=== PATIENT | male | born 1985 | race Caucasian/White ===

== ENCOUNTER 2020-02-04 23:52 | Emergency (ER) | payer OTHER ==
--- NOTE | 2020-02-05 00:53 | XR ---
EXAMINATION TYPE: XR chest 2V DATE OF EXAM: 02/05/2020 COMPARISON: NONE HISTORY: Chest pain TECHNIQUE: FINDINGS: Heart and mediastinum are normal. Lungs are clear. Diaphragm is normal. Bony thorax appears normal. Pulmonary vascularity is normal. IMPRESSION: Normal chest.
[2020-02-05 00:58] LABS: Basophils % (A) 0 %; Eosinophils # (A) 0.2 k/uL (0-0.7); Eosinophils % (A) 3 %; HGB 15.7 gm/dL (13.0-17.5); Lymphocytes # (A) 1.6 k/uL (1.0-4.8); Lymphocytes % (A) 28 %; MCH 28.3 pg (25.0-35.0); MCHC 34.1 g/dL (31.0-37.0); MCV 82.8 fL (80.0-100.0); Mean Platelet Volume 7.2; Monocytes # (A) 0.3 k/uL (0-1.0); Monocytes % (A) 5 %; Neutrophils # (A) 3.6 k/uL (1.3-7.7); Neutrophils % (A) 63 %; Platelet Count 260 k/uL (150-450); RBC 5.56 m/uL (4.30-5.90); RDW 12.4 % (11.5-15.5); WBC 5.8 k/uL (3.8-10.6)
[2020-02-05 00:59] LABS: ALT 26 U/L (4-49); AST 27 U/L (17-59); African American GFR (CKD) >90 (>60 ml/min/1.73 sqM); Albumin 5.1 g/dL (3.5-5.0); Alkaline Phosphatase 49 U/L (38-126); Anion Gap 10 mmol/L; Blood Urea Nitrogen 20 mg/dL (9-20); Calcium 9.8 mg/dL (8.4-10.2); Carbon Dioxide 25 mmol/L (22-30); Chloride 102 mmol/L (98-107); Glucose 101 mg/dL (74-99); Non-African American GFR(CKD) >90 (>60 ml/min/1.73 sqM); Potassium 3.9 mmol/L (3.5-5.1); Sodium 137 mmol/L (137-145); Total Bilirubin 0.5 mg/dL (0.2-1.3); Total Protein 7.9 g/dL (6.3-8.2)
--- NOTE | 2020-02-05 01:02 | ED ---
General Adult HPI - General Chief complaint: Recheck/Abnormal Lab/Rx Stated complaint: SOB, palpitations Time Seen by Provider: 02/05/20 00:05 Source: patient Mode of arrival: ambulatory Limitations: no limitations - History of Present Illness Initial comments: Patient is a 34-year-old male presenting to the emergency Department with complaints of an episode of heart palpitations today. Patient states that for the last week he has "not been feeling himself." He states he's been having episodes of chest palpitations that last anywhere from 30 seconds to a minute. He states they're in this time he sometimes has a headache as well. Patient denies any fever, chills, cough, shortness of breath, chest pains. He denies any abdominal pains, nausea or vomiting. Patient states he does not currently have a PCP. He currently takes no medications. Last year he had a preemployment physical and states they did mention his pressure was elevated however he has not been on any medications. Patient denies any other pertinent past medical history. He does have a history of anxiety and feels like he has been under a lot more stress the last 6 months. He denies smoking, alcohol or drug use. He has no other complaints at this time. Upon arrival to the ER, patient's blood pressure is 171/80, pulse is 106, rest of vitals normal. - Related Data Allergies Allergy/AdvReac Type Severity Reaction Status Date / Time No Known Allergies Allergy Verified 02/05/20 00:01 Review of Systems ROS Statement: Those systems with pertinent positive or pertinent negative responses have been documented in the HPI. ROS Other: All systems not noted in ROS Statement are negative. Past Medical History Past Medical History: No Reported History Past Surgical History: No Surgical Hx Reported Past Psychological History: No Psychological Hx Reported Smoking Status: Never smoker Past Alcohol Use History: None Reported Past Drug Use History: None Reported General Exam - General Exam Comments Initial Comments: GENERAL: Well-appearing, well-nourished and in no acute distress. HEAD: Atraumatic, normocephalic. EYES: Pupils equal round and reactive to light, extraocular movements intact, sclera anicteric, conjunctiva are normal. ENT: TMs normal, nares patent, oropharynx clear without exudates. Moist mucous membranes. NECK: Normal range of motion, supple without lymphadenopathy or JVD. LUNGS: Breath sounds clear to auscultation bilaterally and equal. No wheezes rales or rhonchi. HEART: Regular rate and rhythm without murmurs, rubs or gallops. ABDOMEN: Soft, nontender, normoactive bowel sounds. No guarding, no rebound. No masses appreciated. : Deferred EXTREMITIES: Normal range of motion, no pitting or edema. No clubbing or cyanosis. NEUROLOGICAL: Normal speech, normal gait. PSYCH: Normal mood, normal affect. SKIN: Warm, Dry, normal turgor, no rashes or lesions noted. Limitations: no limitations Course Vital Signs 02/04/20 23:58 Temperature 99 F Pulse Rate 106 H Respiratory 20 Rate Blood Pressure 171/80 O2 Sat by Pulse 99 Oximetry EKG Findings - EKG Comments: EKG Findings:: Ventricular rate 93, ID interval 132, QTC 420. Normal sinus rhythm with sinus arrhythmia. No acute ST segment changes, no signs of acute ischemia. Medical Decision Making - Medical Decision Making Patient is a 34-year-old male presenting with episodes of palpitations intermittently over the past week. He has a history of anxiety. Patient's blood pressure was slightly elevated upon arrival, rest of vitals are normal. Patient's exam is unremarkable. He is currently symptom free. His EKG shows no signs of ischemia. Chest x-ray shows no acute abnormalities. Lab work shows no abnormalities. Troponin is normal. I discussed with patient that his symptoms are most likely related to anxiety. He may also have underlying hypertension. I discussed with patient to follow-up with a PCP. Patient states he has seen Dr. Griggs in the past and will contact them for follow-up. Patient stable for discharge. He is in agreement this plan of care. Return parameters were discussed with the patient and he verbalized understanding. Case discussed with Dr. Turner. - Lab Data Result diagrams: 02/05/20 00:41 02/05/20 00:41 Lab Results 02/05/20 02/05/20 02/05/20 Range/Units 00:41 00:41 00:41 WBC 5.8 (3.8-10.6) k/uL RBC 5.56 (4.30-5.90) m/uL Hgb 15.7 (13.0-17.5) gm/dL Hct 46.0 (39.0-53.0) % MCV 82.8 (80.0-100.0) fL MCH 28.3 (25.0-35.0) pg MCHC 34.1 (31.0-37.0) g/dL RDW 12.4 (11.5-15.5) % Plt Count 260 (150-450) k/uL Neutrophils % 63 % Lymphocytes % 28 % Monocytes % 5 % Eosinophils % 3 % Basophils % 0 % Neutrophils # 3.6 (1.3-7.7) k/uL Lymphocytes # 1.6 (1.0-4.8) k/uL Monocytes # 0.3 (0-1.0) k/uL Eosinophils # 0.2 (0-0.7) k/uL Basophils # 0.0 (0-0.2) k/uL Sodium 137 (137-145) mmol/L Potassium 3.9 (3.5-5.1) mmol/L Chloride 102 (98-107) mmol/L Carbon Dioxide 25 (22-30) mmol/L Anion Gap 10 mmol/L BUN 20 (9-20) mg/dL Creatinine 0.83 (0.66-1.25) mg/dL Est GFR (CKD-EPI)AfAm >90 (>60 ml/min/1.73 sqM) Est GFR (CKD-EPI)NonAf >90 (>60 ml/min/1.73 sqM) Glucose 101 H (74-99) mg/dL Calcium 9.8 (8.4-10.2) mg/dL Total Bilirubin 0.5 (0.2-1.3) mg/dL AST 27 (17-59) U/L ALT 26 (4-49) U/L Alkaline Phosphatase 49 (38-126) U/L Troponin I <0.012 (0.000-0.034) ng/mL Total Protein 7.9 (6.3-8.2) g/dL Albumin 5.1 H (3.5-5.0) g/dL TSH 1.270 (0.465-4.680) mIU/L Disposition Clinical Impression: Palpitations, Anxiety Disposition: HOME SELF-CARE Condition: Stable Instructions (If sedation given, give patient instructions): Anxiety (ED) Additional Instructions: Please return to the Emergency Department if symptoms worsen or any other concerns. Follow-up with PCP as discussed. Is patient prescribed a controlled substance at d/c from ED?: No Referrals: None,Stated [Primary Care Provider] - 1-2 days Lakhwinder Griggs DO [Doctor of Osteopathic Medicine] - 1-2 days
[2020-02-05 02:20] VITALS: BP 137/87; PULSE 89; RESP 16; TEMP 98.8
== END 2020-02-05 02:17 | disposition home or self-care (01) ==
LOC: EC 23:52
DX: F41.9 Anxiety disorder, unspecified (principal)
CPT/HCPCS: 36415; 71046; 80053; 84443; 84484; 85025; 93005; 99285